=== PATIENT | male | born 1985 | race Hispanic/Latino ===

== ENCOUNTER 2018-11-01 21:34 | Emergency (ER) | payer SELFPAY ==
[2018-11-01] MEDS ORDERED: Ketorolac Tromethamine 60 MG/2 ML VIAL ONE (22:00)
--- NOTE | 2018-11-01 22:33 | RAD ---
TWO VIEW CHEST: 11/01/18 HISTORY: Trauma. Lungs appear clear of infiltrate. No pneumothorax or effusion. Heart and mediastinum unremarkable. Os seous structures appear intact. IMPRESSION: No acute abnormality identified. POS: [facility]
--- NOTE | 2018-11-01 22:34 | RAD ---
RIGHT RIBS: 11/01/18 Three views. HISTORY: Injury to right chest. No evidence of right rib fracture identified. No other rib lesion identified. IMPRESSION: No evidence of acute rib fracture. POS: [facility]
== END 2018-11-01 22:36 | disposition home or self-care (01) ==
LOC: ERS 21:34
DX: S40.211A Abrasion of right shoulder, initial encounter (principal); F17.210 Nicotine dependence, cigarettes, uncomplicated; W11.XXXA Fall on and from ladder, initial encounter
CPT/HCPCS: 71046; 96372; J1885

== ENCOUNTER 2018-11-05 10:09 | Emergency (ER) | payer SELFPAY ==
[2018-11-05 10:55] LABS: #Eosinphils 0.2 thou/uL (0.0-0.7); #Lymphocytes 2.4 thou/uL (1.20-3.40); #Monocytes 0.4 thou/uL (0.11-0.59); #Neutrophils 5.1 thou/uL (1.40-6.50); %Basophils 0.6 % (0.0-1.0); %Eosinophils 2.5 % (0.0-10.0); %Lymphocytes 29.5 % (21.0-51.0); %Monocytes 5.2 % (0.0-10.0); %Neutrophils 62.2 % (42.0-75.0); Hemoglobin 16.7 g/dL (14.0-18.0); Mean Corpuscular HGB CONC 33.6 g/dL (32.0-36.0); Mean Corpuscular Hemoglobin 31.8 pg (27.0-31.0); Mean Corpuscular Volume 94.6 fL (78.0-98.0); Platelet Count 203 thou/uL (130-400); Red Blood Cell (RBC) Count 5.25 mill/uL (4.70-6.10); White Blood Cell (WBC) Count 8.2 thou/uL (4.8-10.8)
[2018-11-05 11:22] LABS: ALT (SGPT) 37 U/L (8-55); AST (SGOT) 18 U/L (5-34); Albumin 3.6 g/dL (3.5-5.0); Alkaline Phosphatase 77 U/L (40-150); Anion Gap 10 mmol/L (10-20); BUN (Urea Nitrogen) 9 mg/dL (8.9-20.6); Bilirubin, Total 0.8 mg/dL (0.2-1.2); Calc. Creatinine Clearance 0 mL/min (70-130); Calcium 8.9 mg/dL (7.8-10.44); Carbon Dioxide 24 mmol/L (22-29); Chloride 107 mmol/L (98-107); Estimated GFR-MDRD Greater than 90; Globulin 2.7 g/dL (2.4-3.5); Glucose 98 mg/dL (70-105); Protein, Total 6.3 g/dL (6.0-8.3); Sodium 137 mmol/L (136-145)
[2018-11-05 11:47] LABS: Clarity Cloudy (Clear)
[2018-11-05 11:52] LABS: Nitrite Negative (Negative); Protein, Urine (Dipstick) > or equal to 300 mg/dL (Neg-Trace)
--- NOTE | 2018-11-05 11:52 | CT ---
CT ABDOMEN AND PELVIS WITH IV CONTRAST: Date: 11/05/18 HISTORY: Hematuria. Fell of a ladder. FINDINGS: The lung bases are clear. The liver, spleen, pancreas, and adrenal glands are normal. No calcified ga llstones are seen. The left kidney is malrotated, but otherwise unremarkable. There is severe hydronephrosis on the right due to UPJ obstruction with severe cortical thinning. The re is hyperdense material within the dilated right renal pelvis and calices suspicious for hemorrhage . There is surrounding mild inflammatory change. No free air, free fluid, or lymphadenopathy seen in the abdomen or pelvis. The small bowel loops are not abnormally dilated. The appendix is normal. There are degenerative changes in the spine. IMPRESSION: Severe right-sided hydronephrosis due to UPJ obstruction with probable hemorrhage. Surrounding inflam matory changes may be due to infection, trauma/hemorrhage, or inflammation. Discussed over the telephone with ER physician, Dr. Michelle Leonardo, at 1128 hours. CODE CR. POS: [facility]
[2018-11-05 11:53] LABS: Glucose, Urine (Dipstick) Negative (Negative); Urobilinogen 0.2 mg/dL (Less than 2)
[2018-11-05 11:54] LABS: Bilirubin Negative (Negative); Blood, Urine Large (Negative)
[2018-11-05 11:55] LABS: Leukocyte Small Leu/uL (Negative)
[2018-11-05 12:19] LABS: RBC/HPF Greater than 50 HPF (0-3)
[2018-11-05 12:21] LABS: Squamous Epithelial 0-3 HPF (0-3); WBC/HPF 21-50 HPF (0-3)
[2018-11-05 12:22] LABS: Bacteria/HPF None Seen HPF (None Seen)
[2018-11-05] MEDS ORDERED: Ciprofloxacin 500 MG TAB PO SCH (13:00)
[2018-11-05] MEDS ORDERED: ISOVUE-370 76%-LOCM 1 ML ONE (16:18)
== END 2018-11-05 13:14 | disposition home or self-care (01) ==
LOC: ERS 10:09
DX: N39.0 Urinary tract infection, site not specified (principal); Q62.12 Congenital occlusion of ureterovesical orifice; F17.210 Nicotine dependence, cigarettes, uncomplicated
CPT/HCPCS: 36415; 74177; 80053; 81003; 81015; 85025; 87086; 99283; Q9966